=== PATIENT | female | born 1985 | race African-American/Black ===

== ENCOUNTER 2016-06-19 12:58 | Emergency (ER) | payer MEDICARE, BC ==
[~2016-06-19] VITALS: Ht 154.9 cm; Wt 54.4 kg
[~2016-06-19 12:58] MED LIST: AZIT250T6 PO; HYDR-79 PO; PRED50TA PO
[2016-06-19 13:05] VITALS: BP 126/68
--- NOTE | 2016-06-19 13:30 | ED.ADGEN ---
Past History Past Medical History: No Pertinent History Past Surgical History: No Surgical History Smoking: Non-smoker Alcohol Use: None Drug Use: None Adult General HPI HPI Patient is a 31-year-old female presents emergency department complaining of "chest pressure" in the center of her chest. This chest pressure started last night. The patient has had no associated symptoms such as nausea, vomiting, diaphoresis, dyspnea. She does have a history of anxiety for which she takes Xanax. She has not taken any of her Xanax since her symptoms have started. Only other medical history is asthma. She does state that her mom from a [place] at age 41. Review of Systems Review of Systems Constitutional: Denies fever or chills [] Eyes: Denies change in visual acuity, redness, or eye pain [] HENT: Denies nasal congestion or sore throat [] Respiratory: Denies cough or shortness of breath [] Cardiovascular: No additional information not addressed in HPI [] GI: Denies abdominal pain, nausea, vomiting, bloody stools or diarrhea [] : Denies dysuria or hematuria [] Musculoskeletal: Denies back pain or joint pain [] Integument: Denies rash or skin lesions [] Neurologic: Denies headache, focal weakness or sensory changes [] Endocrine: Denies polyuria or polydipsia [] Allergies Allergies Allergies Uncoded Allergies Type Severity Reaction Last Updated Verified EYE DROPS Allergy Severe Unknown 07/04/15 Physical Exam Physical Exam Constitutional: Well developed, well nourished, no acute distress, non-toxic appearance. [] HENT: Normocephalic, atraumatic, bilateral external ears normal, oropharynx moist, no oral exudates, nose normal. [] Eyes: PERRLA, EOMI, conjunctiva normal, no discharge. [] Neck: Normal range of motion, no tenderness, supple, no stridor. [] Cardiovascular:Heart rate regular rhythm, no murmur [] Lungs & Thorax: Bilateral breath sounds clear to auscultation [] Abdomen: Bowel sounds normal, soft, no tenderness, no masses, no pulsatile masses. [] Skin: Warm, dry, no erythema, no rash. [] Back: No tenderness, no CVA tenderness. [] Extremities: No tenderness, no cyanosis, no clubbing, ROM intact, no edema. [] Neurologic: Alert and oriented X 3, normal motor function, normal sensory function, no focal deficits noted. [] Psychologic: Affect normal, judgement normal, mood normal. [] Current Patient Data Lab Results Laboratory Tests Test 06/19/16 13:21 06/19/16 13:36 POC Troponin I 0.00ng/ml (<0.08) POC Hemoglobin 13.3gm/dL POC Hematocrit 39% POC Sodium 141mmol/L (135-145) POC Potassium 3.7mmol/L (3.5-5.0) POC Chloride 103mmol/L (98-110) POC Total CO2 25mmol/L (23-32) Anion Gap 18mmol/L (6-14) H POC Blood Urea Nitrogen 5mg/dL (8-26) L POC Creatinine 0.8mg/dL (0.5-1.4) Glucose Level 90mg/dL (60-99) POC Ionized Calcium (Severo) 1.20mmol/L (1.13-1.32) EKG EKG EKG interpreted by me, normal sinus rhythm, 79 beats for minute, no ST segment elevation, normal axis. [] Radiology/Procedures Radiology/Procedures Chest x-ray interpreted by me, no acute cardio pulmonary process. [] Course & Med Decision Making Course & Med Decision Making Pertinent Labs and Imaging studies reviewed. (See chart for details) Reassuring workup. Patient does believe this is probably her anxiety. I am inclined to agree. She will follow-up with her physician in 48-72 hours or return emergency department sooner she develops any new or worsening symptoms. [] Final Impression Final Impression Chest Pain[] Problems: Dragon Disclaimer Dragon Disclaimer This electronic medical record was generated, in whole or in part, using a voice recognition dictation system. TAYLER SANTIAGO MD Jun 19, 2016 13:30
--- NOTE | 2016-06-19 13:32 | RAD ---
Indication chest pain. Single view of the chest was obtained and is compared to a study just over 2 months earlier. The heart and pulmonary vessels appear normal. The lungs are clear. There is no pleural fluid or pneumothorax. The bony structures appear grossly intact. A significant change in the chest compared to the prior study is not seen. IMPRESSION: No acute or focal process. No significant change
[2016-06-19 13:46] LABS: HEMOGLOBIN ISTAT 13.3 gm/dL; POTASSIUM ISTAT 3.7 mmol/L (3.5-5.0)
--- NOTE | 2016-06-20 12:29 | EKG ---
[address] [address] Test Date: 2016-06-19 Test Time: 13:11:55 Pat Name: JAQUAN MONIQUE Department: Room: Gender: F Behavior Specialist: : [id number] Requested By: TAYLER SANTIAGO Order Number: [id number] Reading MD: Measurements Intervals [place] Rate: 79 P: 55 FL: 144 QRS: 77 QRSD: 74 T: 29 QT: 366 QTc: 421 Interpretive Statements SINUS RHYTHM QRS(T) CONTOUR ABNORMALITY CONSIDER ANTEROSEPTAL MYOCARDIAL DAMAGE POSSIBLY ABNORMAL ECG RI6.01 Unconfirmed report No previous ECG available for comparison
== END 2016-06-19 14:24 | disposition home or self-care (01) ==
LOC: ER 12:58
DX: R07.89 Other chest pain (principal); F41.9 Anxiety disorder, unspecified; J45.909 Unspecified asthma, uncomplicated; Z88.8 Allergy status to other drugs, medicaments and biological substances
CPT/HCPCS: 71010; 80047; 84484; 93005; 99284-25

== ENCOUNTER 2018-02-26 01:01 | Emergency (ER) | payer MEDICAID, MEDICARE ==
[~2018-02-26] VITALS: Ht 154.9 cm; Wt 63.5 kg
[~2018-02-26 01:01] MED LIST changes: +HYDR-1179 PO; -HYDR-79 PO
[2018-02-26] MEDS ORDERED: FAMOTIDINE 20 MG/2 ML VIAL IVP ONE (01:45)
[2018-02-26] MEDS ORDERED: IV NORMAL SALINE 1,000ML 1,000 ML IV ONE (01:45)
[2018-02-26] MEDS ORDERED: ONDANSETRON PF 4 MG/2 ML VIAL. IV ONE (01:45)
[2018-02-26] MEDS ORDERED: ACETAMINOPHEN 500 MG TABLET PO ONE (02:15)
--- NOTE | 2018-02-26 02:21 | PHYS DOC ---
Past History Past Medical History: Anxiety, Asthma, Other Past Surgical History: No Surgical History Smoking: Non-smoker Alcohol Use: Rarely Drug Use: None Adult General Chief Complaint Chief Complaint: ABDOMINAL PAIN IN HPI HPI Patient is a 32-year-old otherwise healthy [id number] 27 week female presenting with abdominal pain. Patient notes that the pain woke her up from sleep at approximately 12:30 AM today. Patient notes that the pain is located in the right flank and right upper quadrant with a dull quality no radiation severity of 7 out of 10. Patient notes associated nausea but no vomiting. Patient notes she had one normal bowel movement yesterday at approximately 9:30 PM. Patient denies any dysuria, urinary urgency, urinary frequency. Patient notes she had a poor diet yesterday consisting mostly of fatty foods. Patient has had no abdominal surgeries. Patient denies any vaginal bleeding or discharge. Patient denies any contractions. Patient reports good movement Review of Systems Review of Systems Constitutional: Denies fever or chills [] Eyes: Denies change in visual acuity, redness, or eye pain [] HENT: Denies nasal congestion or sore throat [] Respiratory: Denies cough or shortness of breath [] Cardiovascular: Denies chest pain or palpitations GI: Reports abdominal pain and nausea; Denies vomiting or diarrhea [] /INTERNATIONAL ACCOUNT EXECUTIVE: Denies dysuria or hematuria; reports ; denies vaginal bleeding or discharge Musculoskeletal: Denies back pain or joint pain [] Integument: Denies rash or skin lesions [] Neurologic: Denies headache, focal weakness or sensory changes [] Complete systems were reviewed and found to be within normal limits, except as documented in this note. Family History Family History Noncontributory Current Medications Current Medications Current Medications Medications (Trade) Dose Ordered Sig/[facility] Start Time Stop Time Status Last Admin Dose Admin Acetaminophen (Tylenol) 500 mg 1X ONCE 02/26/18 02:15 02/26/18 02:16 UNV Famotidine (Pepcid Vial) 20 mg 1X ONCE 02/26/18 01:45 02/26/18 01:47 DC Ondansetron HCl (Zofran) 4 mg 1X ONCE 02/26/18 01:45 02/26/18 01:47 DC Sodium Chloride 1,000 ml @ 1,000 mls/hr 1X ONCE 02/26/18 01:45 02/26/18 02:44 Allergies Allergies Allergies Uncoded Allergies Type Severity Reaction Last Updated Verified EYE DROPS Allergy Severe Unknown 07/04/15 Physical Exam Physical Exam Constitutional: Well developed, well nourished, no acute distress, non-toxic appearance. [] HENT: Normocephalic, atraumatic, oropharynx moist, no oral exudates, nose normal. [] Eyes: PERRL, EOMI, no discharge. [] Neck: Normal range of motion, no tenderness, supple, no stridor. [] Cardiovascular: Heart rate regular rhythm, no murmur [] Lungs & Thorax: Bilateral breath sounds clear to auscultation [] Abdomen: Gravid abdomen, soft, right upper quadrant and right flank tenderness to palpation, no guarding [] Skin: Warm, dry, no erythema, no rash. [] Back: No tenderness, no CVA tenderness. [] Extremities: No tenderness, ROM intact, no edema. [] Neurologic: Alert and oriented X 3, normal motor function, normal sensory function, no focal deficits noted. [] Psychologic: Affect normal, judgement normal, mood normal. [] EKG EKG [] Radiology/Procedures Radiology/Procedures PROCEDURE: ABDOMEN LTD INDICATION : RUQ PAIN X'S 2 HOURS. COMPARISON: None TECHNIQUE: Multiple ultrasound images obtained through the abdomen in grayscale and color. FINDINGS: Liver: Echogenic liver. Gallbladder: Partially contracted without definite stones IVC: Partially distended at level of liver. Common Bile Duct: Not dilated. Pancreas: Not well seen Right Kidney: No hydronephrosis. IMPRESSION: 1. Partially contracted gallbladder without definite gallstones. Liver appears mildly echogenic. Nonspecific but can be seen with fatty infiltration. Electronically signed by: Anthony Izaguirre MD (02/26/2018 3:44 AM) [facility] \ US OB: Intrauterine at 24 weeks and 3 days with estimated due date of 06/15/18 and breech presentation with a positive heartbeat. Course & Med Decision Making Course & Med Decision Making 32 year old 27 week female presenting with right upper quadrant and right flank abdominal pain. Patient denies any vaginal bleeding or discharge. Patient reports good movement and heart tones were auscultated via Doppler in the emergency department with heart rate in the 150s. Patient given an symptomatic treatment for abdominal pain with good resolution of symptoms. Labs collected, evaluated, and posted to chart. UA with signs of infection. Empiric antibiotics given. Abdominal ultrasound completed without acute process. OB US with intrauterine gestation with normal FHR. Patient stable for discharge with outpatient follow-up with PCP/ELEMENTARY ELL TEACHER. Discussed findings and plan with patient, who acknowledges understanding and agreement. [] Dragon Disclaimer Dragon Disclaimer This electronic medical record was generated, in whole or in part, using a voice recognition dictation system. Departure Departure: Impression: Primary Impression: Urinary tract infection Additional Impression: Abdominal pain during Disposition: HOME, SELF-CARE Condition: STABLE Referrals: PCP,NO (PCP) Patient Instructions: Abdominal Pain During , [id number], - Urinary Tract Infection Scripts Famotidine (PEPCID) 20 Mg Tablet 1 TAB PO BID for Gastritis, #14 TAB 0 Refills Prov: USMAN MEDINA DO 02/26/18 Cephalexin (KEFLEX) 500 Mg Capsule 1 CAP PO TID for UTI, #21 CAP Prov: USMAN MEDINA DO 02/26/18 Problem Qualifiers Primary Impression: Urinary tract infection Urinary tract infection type: acute cystitis Hematuria presence: without hematuria Qualified Codes: N30.00 - Acute cystitis without hematuria Additional Impression: Abdominal pain during Trimester: third trimester Qualified Codes: O26.893 - Other specified related conditions, third trimester; R10.9 - Unspecified abdominal pain USMAN MEDINA DO Feb 26, 2018 02:21
[2018-02-26 02:27] LABS: BILIRUBIN,URINE NEG (NEG); CLARITY,URINE HAZY; COLOR,URINE STRAW; GLUCOSE,URINE NEG (NEG)
[2018-02-26 02:28] LABS: BACTERIA,URINE MOD /HPF (0-FEW); NITRITE,URINE NEG (NEG); RBC,URINE OCC /HPF (0-2); SQUAMOUS EPITHELIAL CELL,UR OCC /LPF; UROBILINOGEN,URINE 0.2 mg/dL (0.2 mg/dL); WBC,URINE >40 /HPF (0-4)
[2018-02-26 02:29] LABS: ALBUMIN 2.8 g/dL (3.4-5.0); ALBUMIN/GLOBULIN RATIO 0.7 (1.0-1.7); CALCIUM 8.5 mg/dL (8.5-10.1); CREATININE 0.6 mg/dL (0.6-1.0); POTASSIUM 3.8 mmol/L (3.5-5.1); TOTAL BILIRUBIN 0.3 mg/dL (0.2-1.0); TOTAL PROTEIN 6.9 g/dL (6.4-8.2)
[2018-02-26 02:41] LABS: BASO % 0 % (0-3); EOS # 0.1 x10^3/uL (0.0-0.7); EOS % 1 % (0-3); HEMATOCRIT 34.1 % (36.0-47.0); HEMOGLOBIN 11.5 g/dL (12.0-15.5); LYMPH % 19 % (24-48); MEAN CORPUSCULAR HEMOGLOBIN 29 pg (25-35); MEAN CORPUSCULAR HGB CONC 34 g/dL (31-37); MEAN CORPUSCULAR VOLUME 87 fL (79-100); MONO # 0.9 x10^3/uL (0.0-1.1); MONO % 9 % (0-9); NEUT # 7.1 x10^3uL (1.8-7.7); NEUT % 71 % (31-73); PLATELET COUNT 221 x10^3/uL (140-400); RED BLOOD COUNT 3.94 x10^6/uL (3.50-5.40); RED CELL DISTRIBUTION WIDTH 13.1 % (11.5-14.5); WHITE BLOOD COUNT 10.1 x10^3/uL (4.0-11.0)
[2018-02-26] MEDS ORDERED: cefTRIAXone SODIUM 1 GM VIAL IV ONE (02:46)
[2018-02-26] MEDS ORDERED: cefTRIAXone IV Push 1 GM VIAL. IVP ONE (03:00)
[2018-02-26] MEDS ORDERED: FAMO-63 PO ×2 (03:29→04:24)
[2018-02-26] MEDS ORDERED: CEPH-264 PO ×2 (03:29→04:24)
[2018-02-26] MEDS ORDERED: PNV11TAB5 PO (03:42)
--- NOTE | 2018-02-26 03:47 | RAD ---
INDICATION : RUQ PAIN X'S 2 HOURS. COMPARISON: None TECHNIQUE: Multiple ultrasound images obtained through the abdomen in grayscale and color. FINDINGS: Liver: Echogenic liver. Gallbladder: Partially contracted without definite stones IVC: Partially distended at level of liver. Common Bile Duct: Not dilated. Pancreas: Not well seen Right Kidney: No hydronephrosis. IMPRESSION: 1. Partially contracted gallbladder without definite gallstones. Liver appears mildly echogenic. Nonspecific but can be seen with fatty infiltration. Electronically signed by: Anthony Izaguirre MD (02/26/2018 3:44 AM) [facility]
[2018-02-26 04:30] VITALS: BP 110/60
--- NOTE | 2018-02-26 04:44 | RAD ---
INDICATION: RUQ PAIN X'S 2 HOURS. COMPARISON: None. TECHNIQUE: Grayscale and color ultrasound images uterus and adnexa. Transabdominal ultrasound images obtained of pelvis FINDINGS: Intrauterine gestational sac is identified with a pole. Breech presentation. Cardiac motion is seen at 127 bpm. Amniotic fluid index 19.1. Placenta is posterior and right lateral. Estimated gestational age 24 weeks and 3 days with estimated weight of 1 lb. 7 oz. Estimated due date 06/15/2018. Biparietal diameter 24 week 4 day Head circumference 25 week 2 day Abdominal circumference 23 week 4 day Femur length 24 week 2 day IMPRESSION: 1. Intrauterine is identified with estimated gestational age of 24 weeks and 3 days with estimated due date of 06/15/2018 and breech presentation with a positive heartbeat. Electronically signed by: Anthony Izaguirre MD (02/26/2018 4:40 AM) [facility]
== END 2018-02-26 04:56 | disposition home or self-care (01) ==
LOC: ER 01:01
DX: O23.42 Unspecified infection of urinary tract in pregnancy, second trimester (principal); O99.512 Diseases of the respiratory system complicating pregnancy, second trimester; O99.342 Other mental disorders complicating pregnancy, second trimester; J45.909 Unspecified asthma, uncomplicated; F41.9 Anxiety disorder, unspecified; Z88.8 Allergy status to other drugs, medicaments and biological substances; Z3A.27 27 weeks gestation of pregnancy
CPT/HCPCS: 36415; 76705; 76805; 76817; 80053; 81001; 83615; 83690; 83735; 85025; 85610; 85730; 87086; 96374; 96375; 99284; J0696; J3490; J7030